=== PATIENT | female | born 1985 | race African-American/Black ===

== ENCOUNTER 2024-09-17 03:16 | Emergency (ER) | payer OTHER, SELFPAY ==
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
--- OUTSIDE RECORDS SUMMARY | 2024-09-17 03:18 | XMS_ITS | Referral Summary ---
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
--- NOTE | 2024-09-17 03:26 | ED.GENADULT ---
HPI - General Adult General Chief complaint: Allergic Reaction Stated complaint: allergic reaction to face Time Seen by Provider: 09/17/24 03:25 History of Present Illness HPI narrative: This is a 39-year-old female presenting with facial swelling. Patient but artificial eyelashes 3 days ago when after she put them on she developed itching and swelling around her eyes. She eyelashes are she has continued to have the swelling. No involvement of the mouth or throat. No difficulty breathing. No nausea vomiting or diarrhea Related Data Allergies Allergy/AdvReac Type Severity Reaction Status Date / Time No Known Allergies Allergy Unknown Verified 09/17/24 03:16 Exam Narrative: APPEARANCE: No apparent distress. Head: Mild periorbital swelling and erythema EYES: EOMI, NOSE: Atraumatic NECK: Trachea midline RESPIRATORY: No increased rate of breathing CARDIOVASCULAR: RRR, ABDOMINAL: Non-distended MUSCULOSKELETAl: No obvious deformities NEURO: Alert. Moving 4/4 extremities SKIN:: Warm, dry. Normal color PSYCHIATRIC: Normal affect Medical Decision Making MDM Narrative Medical decision making narrative: -Course: 31-year-old female presenting with periorbital urticaria after applying artificial eyelashes. Treated with steroids Pepcid and Benadryl. Instructed not to use those eyelashes again. Given return precautions for anaphylaxis or worsening symptoms. -DDX includes but is not limited to: Allergic reaction, periorbital cellulitis Discharge Plan Discharge Clinical Impression: Allergic reaction Patient Disposition: Home Condition: Stable Instructions: Antibiotic Form, Urticaria (ED) Additional Instructions: Please use Benadryl as needed for itching. Please do not use those artificial eyelashes again as they appear to have caused your reaction. If you develop swelling of her throat, difficulty breathing lightheadedness return to the ED for re-evaluation. Patient Language: Swazi Prescriptions: New diphenhydramine HCl [Benadryl] 25 mg capsule 25 mg PO TID PRN (Reason: allergic reaction) Qty: 30 0RF Follow-up/Referrals: PHYSICIAN,SUPERVISOR OFFSET PLATE PREPARATION [Primary Care Provider] -
[2024-09-17 03:29] VITALS: O2SAT 99
--- OUTSIDE RECORDS SUMMARY | 2024-09-17 03:43 | XMS_ITS | Clinical Summary ---
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
--- OUTSIDE RECORDS SUMMARY | 2024-09-17 03:43 | XMS_ITS | Referral Summary ---
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
[2024-09-17] MEDS: dexAMETHasone SOD PHOS INJ 10 MG/ML 1 ML VIAL IM (03:46)
[2024-09-17] MEDS: FAMOTIDINE 20 MG TABLET 40 MG PO (03:47)
[2024-09-17] MEDS: diphenhydrAMINE HCl INJ 50 MG/ML VIAL 25 MG IM (03:47)
== END 2024-09-17 03:58 | disposition home or self-care (01) ==
LOC: ANHED 03:42
PROVIDERS: Emergency Provider Emergency Medicine
DX: T78.40XA Allergy, unspecified, initial encounter (principal); X58.XXXA Exposure to other specified factors, initial encounter
CPT/HCPCS: 96372; 99284; A9270; J1100; J1200